=== PATIENT | female | born 2000 | race Caucasian/White ===

== ENCOUNTER 2019-06-15 09:17 | Emergency (ER) | payer BC ==
[2019-06-15 09:31] VITALS: BP 125/81
--- NOTE | 2019-06-15 09:48 | UC ---
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 C/O sinus pressure/congestion also. " +type I DM. has pump. BSs have been fine and without change -no rash. no cough -no confusion. no dizziness -has IUD, denies . - History of Current Complaint Chief Complaint: UCGeneralIllness Stated Complaint: SORE THROAT Time Seen by Provider: 06/15/19 09:39 Hx Last Menstrual Period: has IUD, no menses Pain Intensity: 7 - Allergies/Home Medications Allergies/Adverse Reactions: Allergies Allergy/AdvReac Type Severity Reaction Status Date / Time No Known Allergies Allergy Verified 06/15/19 09:31 Home Medications: Home Medications Insulin LISPRO* [HumaLOG*] 0 units SUBCUT DIRECTED 06/15/19 [History Confirmed 06/15/19] PMH/Surg Hx/FS Hx/Imm Hx Previously Healthy: Yes Endocrine History: Diabetes - Surgical History Surgical History: None - Family History Known Family History: Positive: Non-Contributory - Social History Alcohol Use: None Substance Use Type: None Smoking Status (MU): Never Smoked Tobacco Review of Systems All Other Systems Reviewed And Are Negative: Yes Constitutional: Positive: Chills, Fatigue. Negative: Fever Skin: Positive: Negative. Negative: Rash Eyes: Positive: Negative. Negative: Eye Redness ENT: Positive: Sore Throat Respiratory: Positive: Negative. Negative: Shortness Of Breath, Cough Cardiovascular: Positive: Negative. Negative: Palpitations, Chest Pain Gastrointestinal: Positive: Negative Genitourinary: Positive: Negative Motor: Positive: Negative Neurovascular: Positive: Negative Musculoskeletal: Positive: Negative Neurological: Positive: Negative Psychological: Positive: Negative Is Patient Immunocompromised?: No Physical Exam Triage Information Reviewed: Yes Appearance: Well-Appearing, No Pain Distress, Well-Nourished Vital Signs: Initial Vital Signs Temp 98.9 F 06/15/19 09:27 Pulse 84 06/15/19 09:27 Resp 18 06/15/19 09:27 BP 125/81 06/15/19 09:27 Pulse Ox 98 06/15/19 09:27 Vital Signs Reviewed: Yes Eye Exam: Normal Eyes: Positive: Conjunctiva Clear ENT: Positive: Pharyngeal erythema - airway patent, TMs normal, Uvula midline. Negative: Nasal drainage, Tonsillar swelling, Tonsillar exudate, Muffled voice, Hoarse voice, Sinus tenderness Dental Exam: Normal Neck: Positive: Enlarged Nodes @ - b/l anterior cx LAD Respiratory Exam: Normal Respiratory: Positive: Lungs clear, Normal breath sounds, No respiratory distress, No accessory muscle use. Negative: Crackles, Rhonchi, Stridor, Wheezing Cardiovascular Exam: Normal Cardiovascular: Positive: RRR, No Murmur Abdominal Exam: Normal Musculoskeletal Exam: Normal Neurological Exam: Normal Psychological Exam: Normal Skin Exam: Normal Skin: Negative: Rashes Throat Pain/Nasal Course/Dx - Course Course Of Treatment: Rapid strep postitve. -augmentin 875mgs BID x 10 d -probiotic ELOISA for pain - Differential Dx/Diagnosis Differential Diagnosis/HQI/PQRI: Pharyngitis, Tonsillitis, URI Provider Diagnosis: Strep pharyngitis Discharge ED - Sign-Out/Discharge Documenting (check all that apply): Patient Departure All imaging exams completed and their final reports reviewed: No Studies - Discharge Plan Condition: Stable Disposition: HOME Prescriptions: Amoxicillin/Clavulanate TAB* [Augmentin TAB 875*] 875 mg PO BID #20 tab Patient Education Materials: Strep Throat (DC) Referrals: No Primary Care Phys,NOPCP [Primary Care Provider] - Additional Instructions: -It is recommended that you take a probiotic daily while you are on antibiotics. A few common brands that you can buy over the counter are colon health, align and florastor. These can help prevent a colon infection called c diff that can be associated with antibiotic use. -You can followup in [facility] or here in 4-5 days -You can take ibuprofen 600-800mgs every 8 hrs as needed for pain. You should be feeling better in 24-48 hrs. Please follow up in the ER if you do not or your symptoms worsen or your blood sugars increase, get dizzy or confused. - Billing Disposition and Condition Condition: STABLE Disposition: Home
== END 2019-06-15 09:54 | disposition home or self-care (01) ==
LOC: UCCORT 09:17
DX: J02.0 Streptococcal pharyngitis (principal); E10.9 Type 1 diabetes mellitus without complications; R53.83 Other fatigue; Z79.4 Long term (current) use of insulin
CPT/HCPCS: 87651; 99202; G0463